=== PATIENT | male | born 1935 | race Caucasian/White ===

== ENCOUNTER 2017-07-31 09:35 | Outpatient (CLI) | payer MEDICARE, OTHER ==
--- NOTE | 2017-07-31 14:32 | Diagnostic Imaging Report ---
STEPHANIE LANGSTON [facility] [address] [facility].[address] [address] Report Submission Date: Jul 31, 2017 10:43:46 AM CDT Patient Study Name: JODY CAZARES Date: Jul 31, 2017 9:49:54 AM CDT Modality Type: US Gender: F Description: PELVIS MASS DIAGNOSIS : 31 Institution: [facility] Physician: STEPHANIE LANGSTON Examination: Ultrasound pelvis History: Nocturia Comparison exams: None available Findings: Sonographic evaluation of the pelvis demonstrates a uterus measuring 5.9 x 2.7 x 3.9 cm. Myometrium without gross mass/regularity. Endometrial complex measures 2.7 mm. Ovaries not visualized. No adnexal abnormality. Impression: Atrophic uterus. No evidence for pelvic mass or lesion. Electronically signed on Jul 31, 2017 10:43:46 AM CDT by: Nathen DAMON
--- NOTE | 2017-07-31 14:32 | Diagnostic Imaging Report ---
STEPHANIE LANGSTON [facility] [address] [facility].[address] [address] Report Submission Date: Jul 31, 2017 10:36:46 AM CDT Patient Study Name: JODY CAZARES Date: Jul 31, 2017 10:02:40 AM CDT Modality Type: US Gender: F Description: US RETROPERITONEAL LIMIT : 31 Institution: [facility] Physician: STEPHANIE LANGSTON Examination: Ultrasound bladder History: Nocturia Comparison exams: None provided Findings: Pre void bladder volume 140 ml. Bilateral ureteral jets. No bladder mucosal irregularity. Post void volume 38 mL. Impression: Mild to moderate postvoid residual. Electronically signed on Jul 31, 2017 10:36:46 AM CDT by: Nathen DAMON
== END 2017-07-31 09:36 ==
LOC: RAD 09:35
PROVIDERS: ATTEND Family Medicine
DX: R35.1 Nocturia (principal); R35.0 Frequency of micturition; R10.2 Pelvic and perineal pain
CPT/HCPCS: 76856; 76857